=== PATIENT | male | born 1940 | race Caucasian/White ===

== ENCOUNTER 2016-05-31 15:06 | Inpatient (IN) | payer OTHER ==
--- NOTE | 2016-05-31 17:08 | PN- Att Addend ---
DANIEL MONTESINOS APRN 05/31/16 1707: Attending Addendum Attending Brief Note Hospice Admission H&P Chief Complaint: admit for hospice care Source: pt, family, very limited medical records Exam Limitations: pt condition Associated Symptoms: pain, congestion, restlessness History of Present Illness: 75-year-old male with pancreatic cancer who lives at home with and was receiving hospice services in the community. Patient has had no oral intake since last Tuesday and has become increasingly restless over the past 24-48 hours necessitating inpatient hospice care for symptom management. Allergies: oxalaplatin Review of Systems: Denies pain or shortness of breath. No oral intake for 5 days. Past Medical History: Hypertension, diabetes mellitus type 2, hyperlipidemia, CVA, arthritis, pancreatic cancer Past Surgical History: Unknown Family History: Mother with CVA Psychosocial History: , history of smoking Functional Ability: Currently dependent Exam and Diagnostic Data: Vital signs: T-; HR-; RR-; BP- pending Physical Exam: General: Minimally responsive, elderly male in NAD Skin: Warm dry and intact HEENT: PERRL. Oral mucosa moist. Neck: Supple, negative JVD Heart: S1-S2, RRR. No murmur noted Lungs: Upper airway rhonchi, unlabored. Oxygen-4 L nasal prong Abdomen: Soft, nontender Musculoskeletal: no c/c/e Neuro/Psych: Minimally responsive but able to follow simple directions. Labs/Imaging: None available Assessment/Plan: Patient is a 74-year-old male with pancreatic cancer who was transferred for inpatient hospice care for symptom management due to worsening pain and restlessness. Patient was on OxyContin and oxycodone in the [facility] was consulted for conversion of medication and will be started on morphine drip 2 mg per hour with protocol for titration. Ativan 1 mg IV/subcutaneous every 3 hours when necessary restlessness/anxiety Haldol 0.5 mg subcutaneous every 2 hours as necessary for agitation Scopolamine 2 patches TD every 72 hours for congestion Robinul 0.2 mg IV/subcutaneous every 4 hours as needed for congestion SHANICE REAL 05/31/16 7458: Attending Addendum Attending Brief Note Pt discussed with Daniel Garcia and agree with the above assessment and plan. Pt being started on morphine drip. Shanice Real
[2016-06-02 06:23] VITALS: BP 118/64
--- NOTE | 2016-06-03 13:17 | Discharge Summary ---
Visit Information Visit Dates Admission Date: 05/31/16 Discharge Date: 06/03/16 Hospital Course Course Attending Physician: ROLANDO GUEVARA MD Primary Care Physician: GAUTAM KELLER MD Hospital Course: Patient is a 74-year-old male with pancreatic cancer who was transferred from [facility] for inpatient hospice care for symptom management due to worsening pain and restlessness. Patient was on OxyContin and oxycodone in the [facility] pharmacy was consulted for conversion of medication and was started on morphine drip 2 mg per hour with protocol for titration. Scopolomine, glycopyrrolate were used for copious secretions and lorazepam utilized for anxiety/restlessness. He was kept comfortable until he passed peacefully on 06/03/16. Allergies: Coded Allergies: oxaliplatin (06/01/16) Disposition Summary Disposition Principal Diagnosis: Pancreatic cancer Additional Diagnosis: Hypertension Diabetes Mellitus, type 2 Discharge Disposition: Discharge Instructions General Discharge Information Code Status: Hospice Patient's Diet: N/A Patient's Activity: N/A Follow-Up Instructions/Appts: N/A Copies To: ARIANNA MACKENZIE,GAUTAM Michaels Attending MD Review Statement Other Findings: Pts Attending was Dr Laura Galvan, please see her note for more details.
== END 2016-06-03 05:00 | disposition expired | DRG 437 ==
LOC: 2NA 15:06
PROVIDERS: ADMIT Internal Medicine
DX: C25.9 Malignant neoplasm of pancreas, unspecified (principal); E11.9 Type 2 diabetes mellitus without complications; I10 Essential (primary) hypertension; Z51.5 Encounter for palliative care
CPT/HCPCS: J1630; J2270